=== PATIENT | male | born 1975 | race Caucasian/White ===

== ENCOUNTER 2017-11-15 19:13 | Emergency (ER) | payer MEDICAID | END 2017-11-15 22:35 | disposition home or self-care (01) | LOC: D.ER 19:13 | DX: F41.1 Generalized anxiety disorder (principal); F41.0 Panic disorder [episodic paroxysmal anxiety]; E11.9 Type 2 diabetes mellitus without complications ==

== ENCOUNTER 2017-12-12 16:02 | Emergency (ER) | payer MEDICAID ==
[2017-12-12 17:10] LABS: BASOPHILS 0.4 % (0-2); EOSINOPHILS 1.2 % (0-7); HEMATOCRIT 51.3 % (42.0-54.0); HEMOGLOBIN 18.5 g/dL (13.5-17.5); IMMATURE GRANULOCYTES 0.2 % (0-5); MCH 33.4 pg (26.0-34.0); MCHC 36.1 g/dL (31.0-37.0); MCV 92.6 fL (80.0-100.0); MEAN PLATELET VOLUME 10.3 fL (7.4-10.4); MONOCYTES 8.7 % (2-11); NEUTROPHILS 64.5 % (40-80); PLATELET COUNT 190 10x3/uL (130-400); RBC 5.54 10x6/uL (4.20-6.10); RDW 12.4 % (11.5-14.5); WBC 10.4 10x3/uL (4.8-10.8)
[2017-12-12 17:20] LABS: APPEARANCE CLEAR (CLEAR); BILIRUBIN NEGATIVE (NEGATIVE); COLOR DK YELLOW (YELLOW); GLUCOSE 1000 mg/dL (NEGATIVE); KETONE MODERATE mg/dL (NEGATIVE); NITRITE NEGATIVE (NEGATIVE); PROTEIN TRACE mg/dL (NEGATIVE); SPECIFIC GRAVITY 1.025 (1.005-1.020); UROBILINOGEN NORMAL (NORMAL)
[2017-12-12 17:20] LABS: ALBUMIN 3.9 g/dL (3.4-5.0); ANION GAP 15.7 mmol/L (8-16); BILIRUBIN - TOTAL 0.8 mg/dL (0.2-1.3); CALCIUM 9.3 mg/dL (8.5-10.1); CARBON DIOXIDE 21.8 mmol/L (21.0-32.0); CREATININE - SERUM 1.2 mg/dL (0.6-1.3); POTASSIUM - SERUM 3.5 mmol/L (3.5-5.1)
[2017-12-12 17:35] LABS: UDS - AMPHET POSITIVE QUAL (NEGATIVE); UDS - BARB NEGATIVE QUAL (NEGATIVE); UDS - BENZO POSITIVE QUAL (NEGATIVE); UDS - COCAINE NEGATIVE QUAL (NEGATIVE); UDS - OPIATE POSITIVE QUAL (NEGATIVE); UDS - PCP NEGATIVE QUAL (NEGATIVE); UDS - THC POSITIVE QUAL (NEGATIVE)
== END 2017-12-12 17:52 | disposition home or self-care (01) ==
LOC: D.ER 16:02
PROVIDERS: Family Medicine; Physician Assistant Medical
DX: E11.65 Type 2 diabetes mellitus with hyperglycemia (principal); Z76.0 Encounter for issue of repeat prescription